=== PATIENT | female | born 1985 ===

== ENCOUNTER → 2021-03-31 14:53 | Outpatient (CLI) | payer OTHER, MEDICAID, SELFPAY ==
[2021-03-31 15:16] LABS: Appearance Urine UA CLEAR; Bilirubin Urine UA NEGATIVE (NEGATIVE); Color Urine UA YELLOW; Glucose Urine UA NEGATIVE (Negative); Ketones Urine UA TRACE (NEGATIVE); Leukocyte Esterase Urine UA TRACE (NEGATIVE); Nitrite Urine UA NEGATIVE (Negative); Occult Blood Urine UA NEGATIVE (Negative); Protein Urine UA NEGATIVE (Negative); Specific Gravity Urine UA <=1.005 (1.000-1.035); Urobilinogen Urine UA 0.2 E.U./dL (0.2)
[2021-03-31 15:25] LABS: pH Urine UA 5.5 (4.5-8.0)
[2021-03-31 15:26] LABS: Bacteria Urine Moderate (10-30); RBC Urine None Seen (0-5/HPF); Squamous Epithelial Cell Urine 5-10 /HPF (0-5/HPF); WBC Urine 0-1/HPF (0-5/HPF)
[2021-03-31 16:37] LABS: Add Manual Diff / Slide Review NO; Basophils Absolute Auto 100 /uL (0-100); Basophils Percent Auto 0.7 % (0-2); Eosinophils Absolute Auto 0 /uL (0-450); Eosinophils Percent Auto 0.4 % (2-4); Hematocrit 38.5 % (36-46); Hemoglobin 12.9 g/dL (12.0-16.0); Lymphocytes Absolute Auto 1500 /uL (1100-4500); Lymphocytes Percent Auto 13.8 % (25-40); Mean Corpuscular HGB Conc 33.4 % (30-36); Mean Corpuscular Hemoglobin 29.1 PG (26-34); Monocytes Absolute Auto 500 /uL (0-900); Monocytes Percent Auto 4.1 % (3-14); Neutrophils Absolute Auto 9000 /uL (1500-7000); Platelet Count 256 X10^3/uL (150-400); Red Blood Cell Count 4.42 X10^6/uL (4.0-5.2); Red Cell Distribution Width 13.2 % (11.6-14.8); White Blood Cell Count 11.1 X10^3/uL (4.5-11.0)
[2021-04-01 03:10] LABS: RPR Screen Non Reactive (Non Reactive)
[2021-04-01 10:25] LABS: Varicella IgG Antibody 1361 index (Immune >165)
[2021-04-03 01:56] LABS: HIV 1 & 2 Ab/Ag 4th Gen Combo NEGATIVE (NEGATIVE); Hep C Virus Ab w/Reflex Quant NEGATIVE s/c (NEGATIVE); Hepatitis B Surface Antigen NEGATIVE s/c (NEGATIVE); Rubella Antibody IgG 60.8 IU/mL (>15)
== END ==
PROVIDERS: Referring Provider Family Medicine; Visit Provider Family Medicine
DX: Z34.81 Encounter for supervision of other normal pregnancy, first trimester (principal)
CPT/HCPCS: 36415; 80055; 81003; 81015; 86787; 86803; 86850; 86900; 86901; 87086; 87389

== ENCOUNTER → 2021-04-28 14:02 | Outpatient (CLI) | payer OTHER, MEDICAID, SELFPAY | PROVIDERS: Family Medicine; Referring Provider Family Medicine; Visit Provider Family Medicine | DX: O09.529 Supervision of elderly multigravida, unspecified trimester (principal); Z34.81 Encounter for supervision of other normal pregnancy, first trimester; Z3A.13 13 weeks gestation of pregnancy; Z34.91 Encounter for supervision of normal pregnancy, unspecified, first trimester | CPT/HCPCS: 36415; 81420 ==

== ENCOUNTER → 2021-10-09 13:45 | Outpatient (CLI) | payer OTHER, MEDICAID, SELFPAY ==
[2021-10-10 10:54] LABS: Strep Grp B PCR NEG for Grp B Strep
== END ==
PROVIDERS: Referring Provider Specialist; Visit Provider Specialist
DX: Z34.83 Encounter for supervision of other normal pregnancy, third trimester (principal); Z3A.37 37 weeks gestation of pregnancy
CPT/HCPCS: 87653

== ENCOUNTER 2021-10-27 06:59 | Inpatient (IN) | payer OTHER, MEDICAID, SELFPAY ==
[2021-10-27 09:25] LABS: Add Manual Diff / Slide Review NO; Basophils Absolute Auto 100 /uL (0-100); Basophils Percent Auto 0.5 % (0-2); Eosinophils Absolute Auto 200 /uL (0-450); Eosinophils Percent Auto 1.6 % (2-4); Hematocrit 32.8 % (36-46); Hemoglobin 10.8 g/dL (12.0-16.0); Lymphocytes Absolute Auto 1600 /uL (1100-4500); Lymphocytes Percent Auto 14.3 % (25-40); Monocytes Absolute Auto 800 /uL (0-900); Monocytes Percent Auto 6.9 % (3-14); Neutrophils Absolute Auto 8500 /uL (1500-7000); Neutrophils Percent Auto 76.7 % (50-75); Platelet Count 219 X10^3/uL (150-400); Red Blood Cell Count 4.15 X10^6/uL (4.0-5.2); Red Cell Distribution Width 16.5 % (11.6-14.8); White Blood Cell Count 11.1 X10^3/uL (4.5-11.0)
[2021-10-27 09:38] LABS: COVID19 -Nasal RAPID Negative (Negative)
--- NOTE | 2021-10-27 10:07 | PM.OBHP.1 ---
OB HPI Date/Time Date of admission: 10/27/21 Date Patient Seen: 10/27/21 Time Patient Seen: 07:30 History of Present Condition Chief complaint: obs of labor : 5 Para: 2 Estimated Date of Delivery: 10/30/21 Estimated Gestational Age (weeks): 39 Narrative: Brandy Rowland is a 36 year old female presented to Labor and delivery with spontaneous rupture membranes. Not in active labor. History of Present care: good care, initiated at week # (9), number of visits (8) and pounds weight gain (41) Dating criteria: LMP confirmed by 1st trimester US Ultrasounds: normal mid trimester US Obstetrical complications: none Medical complications: none Preadmission Labs Blood type: B (-) negative -: Antibody screen: negative, GBS status: negative, HBsAG: negative, HIV: negative and RPR/VDLR: negative -: Chlamydia screen: not detected and Gonorrhea screen: not detected -: Rubella: immune and Varicella: immune HCAB: negative Cell-free DNA: Normal female 1 hr GTT: 118 Prior (ies) History: 11/29/16 6 spontaneous 07/30/18 41.4 12 9 lb 5 oz [facility]vaginal [facility]live [facility] [place] [facility] post-dates inductionOrin 06/04/19 5-6 spontaneous 03/19/20 39.5 1 8 lb 1 oz Femalevaginallive - full termnoneAlR[facility], [place].still BF.noneRomy Evaluation Evaluation Baseline heart rate: 130 Variability: Moderate (11-25) monitor accelerations: Present Monitor Decelerations: Absent Contraction Frequency (minutes): 10 Uterine Contraction Intensity: Mild Category of Tracing: Reactive Status: Category l Dilation (cm): 5 Effacement (%): 90 station: -2 Non-invasive Membranes Rupture Test: positive [facility] Medical History (Updated 03/23/21 @ 12:20 by Jewels Willett RN) Anxiety (~2013) Constipation (~2018) Depression (~2013) Lichen sclerosus of female genitalia (~1993) Surgical History (Updated 03/23/21 @ 12:16 by Jewels Willett RN) History of placement of ear tubes (~1988) History of tonsillectomy and adenoidectomy (~2000) [place] teeth extracted (~2001) Family History (Updated 03/23/21 @ 12:27 by Jewels Willett RN) Mother Depression Arthritis Father Prostate cancer Grandmother Pituitary tumor Grandfather Dementia Grandmother Alzheimer disease Stroke Grandfather Astrocytoma brain tumor Social History marital status: number of children: 2 household members: spouse and children lives independently: Yes caregiver/support person: No housing: house pets and animals: No education level: master's degree (Law degree. ) occupational status: unemployed ([employer] current occupational exposures/hazards: No special carina needs: No seatbelt use: always do you feel safe at home: Yes Smoking Status: Never smoker Tobacco: How many years used: 5 quit status: quit date established (2017.) second hand exposure: No alcohol intake: former (Pre-: occasional wine. ) substance use type: does not use during the past year weight has: increased > 10 lbs well-balanced diet: daily or most days (Ovo-lacto vegetarian: aware of protein needs and sources. Enc'd online nutrition class.) daily servings fruits/ve-4 caffeine: Yes (1 cup/day. ) Type(s) of exercise: walking frequency: daily (has not worked out since she became : used to, wants to get back to that. ) Meds Home Medications and Allergies Home Medications Medication Instructions Recorded Confirmed Type prenat.vits,enedina,oud-[id number]-[id number] 1 tab PO DAILY 03/23/21 10/27/21 History Allergies Allergy/AdvReac Type Severity Reaction Status Date / Time No Known Drug Allergies Allergy Verified 03/23/21 12:09 Review of Systems Review of Systems Narrative: Good movement. Positive rupture membranes. No regular contractions. No headaches, scotomata, epigastric pain. No fevers. OB Exam Narrative Exam Narrative: HEENT exam within normal limits. Lungs are clear to auscultation percussion. Heart is regular rate and rhythm no S3-S4 murmurs. Abdomen is gravid. Fetus is vertex. Extremities without edema and nontender. Objective Labs Result Diagrams: 10/27/21 09:20 Labs: Laboratory Results - last 24 hr 10/27/21 10/27/21 10/27/21 08:00 08:59 09:20 WBC 11.1 H RBC 4.15 Hgb 10.8 L Hct 32.8 L MCV 79.0 L MCH 26.0 MCHC 33.0 RDW 16.5 H Plt Count 219 Neut % (Auto) 76.7 H Lymph % (Auto) 14.3 L [place] % (Auto) 6.9 Eos % (Auto) 1.6 L Baso % (Auto) 0.5 Neut # (Auto) 8500 H Lymph # (Auto) 1600 [place] # (Auto) 800 Eos # (Auto) 200 Baso # (Auto) 100 SARS-CoV-2 (PCR) Negative Blood Type B Negative Antibody Screen Positive Antibody Identification Anti-D Assessment and Plan Assessment and Plan Assessment and Plan narrative: 39 week gestation with spontaneous rupture membranes. History of fast labor. Anticipate vaginal delivery.
[2021-10-27] MEDS: LACTATED RINGERS 1,000 ML 100 ML IV (11:40)
--- NOTE | 2021-10-27 15:52 | PM.OBPRVD ---
Labor & Delivery Delivery date: 10/27/21 Delivery monitor: external FHT and external uterine Route of delivery: L&D Laceration Description: None Estimated blood loss (mL): 100 Anesthesia Type: Other (Nitrous oxide) Narrative: Patient arrived on Labor and delivery with spontaneous rupture membranes. She eventually use nitrous oxide for pain control. heart tones category 1 throughout labor. Patient delivered spontaneously, over an intact perineum. The viable female was placed on the maternal abdomen. There was a nuchal cord. This was released after the baby was born. After the cord stopped pulsating the cord was clamped, cut, and cord bloods obtained. The placenta delivered spontaneously, intact, with three-vessel cord. There were no cervical, vaginal, or perineal tears. Both infant and mother doing well. Baby 1: Infant gender: Female Presentation: vertex Position: Right Occiput Anterior Placenta delivery description: Spontaneous Cord Vessel Description: 3 Vessels and Nuchal Cord score (1 min): 9 score (5 min): 9 weight: 8 lb 8 oz Plan for aftercare: Routine care
[2021-10-27] MEDS: IBUPROFEN 600 MG TABLET PO ×2 (16:41→22:57)
[2021-10-27] MEDS: ACETAMINOPHEN 325 MG TABLET 650 MG PO ×2 (16:41→22:57)
[2021-10-28] MEDS: ACETAMINOPHEN 325 MG TABLET 650 MG PO ×2 (04:46→11:21)
[2021-10-28] MEDS: IBUPROFEN 600 MG TABLET PO ×2 (04:46→11:19)
[2021-10-28 06:08] LABS: Add Manual Diff / Slide Review NO; Basophils Absolute Auto 100 /uL (0-100); Basophils Percent Auto 0.5 % (0-2); Eosinophils Absolute Auto 200 /uL (0-450); Eosinophils Percent Auto 1.5 % (2-4); Hematocrit 31.2 % (36-46); Hemoglobin 10.2 g/dL (12.0-16.0); Lymphocytes Absolute Auto 1800 /uL (1100-4500); Lymphocytes Percent Auto 13.2 % (25-40); Mean Corpuscular HGB Conc 32.5 % (30-36); Mean Corpuscular Hemoglobin 25.8 PG (26-34); Mean Corpuscular Volume 79.4 fL (80-100); Monocytes Absolute Auto 900 /uL (0-900); Monocytes Percent Auto 6.6 % (3-14); Neutrophils Absolute Auto 10900 /uL (1500-7000); Neutrophils Percent Auto 78.2 % (50-75); Platelet Count 192 X10^3/uL (150-400); Red Blood Cell Count 3.93 X10^6/uL (4.0-5.2); Red Cell Distribution Width 16.6 % (11.6-14.8); White Blood Cell Count 13.9 X10^3/uL (4.5-11.0)
[2021-10-28 10:04] VITALS: BP 112/75; PULSE 83; RESP 16; TEMP 36.8
--- NOTE | 2021-10-28 10:22 | P.DS_ITS ---
Discharge Providers Provider Date of admission: 10/27/21 06:59 Discharge Date: 10/28/21 Primary care physician: Doctor Lincoln MD Consults: 10/27/21 08:58 Consult to Anesthesiology Urgent Comment: Consulting Provider: Anesthesiologist Reason for consultation: Epidural Has provider been notified: No 10/28/21 15:51 Consult to Insurance Job Titles Routine Comment: Discharge provider: Carol Mackay DO Summary Hospital Course Date Patient Seen: 10/28/21 Time Patient Seen: 09:15 Diagnoses: Spontaneous vaginal delivery 39 weeks of Hospital Course: Patient is a 36-year-old now 3 after uncomplicated spontaneous vaginal delivery at 39 weeks and 4 days. Patient presented with rupture of membranes and progressed into labor. She utilized nitrous oxide for pain control and went on to deliver a vigorous female infant. There were no lacerations. course has been uncomplicated. Pain well controlled, vaginal bleeding moderate as expected. She is tolerating a diet and passing flatus. Breast-feeding with some pain but overall doing well. Advised patient to call for fevers, severe pain or bleeding through more than a pad an hour. She will follow-up with Dr. Obregon in 1 month. Peripartum Data Delivery Method: Natural Vaginal Laceration Description: None complications: none [place] 1: Gender: Female Disposition of : home Discharge Diagnosis (1) 39 weeks gestation of : Status: Acute (2) Spontaneous vaginal delivery: Status: Acute Status at Discharge Cognitive/behavioral status at discharge: at baseline, oriented Functional status at discharge: independent ambulation Overall status at discharge: patient is progressing back to baseline Time Spent with Patient Time attestation: Total time spent providing and/or coordinating discharge services: Time spent: Less than 30 minutes Objective Labs Result Diagrams: 10/28/21 06:00 Labs: Laboratory Results - last 24 hr 10/28/21 06:00 WBC 13.9 H RBC 3.93 L Hgb 10.2 L Hct 31.2 L MCV 79.4 L MCH 25.8 L MCHC 32.5 RDW 16.6 H Plt Count 192 Neut % (Auto) 78.2 H Lymph % (Auto) 13.2 L [place] % (Auto) 6.6 Eos % (Auto) 1.5 L Baso % (Auto) 0.5 Neut # (Auto) 27564 H Lymph # (Auto) 1800 [place] # (Auto) 900 Eos # (Auto) 200 Baso # (Auto) 100 Exam Vital Signs (past 8 hours): - 10/28/21 10:04 Temperature 98.2 F Pulse Rate 83 Respiratory Rate 16 Blood Pressure 112/75 Narrative Exam Narrative: General: Awake and alert, no acute distress. HEENT: NCAT, EOMI, moist oral mucosa CV: Regular rate and rhythm, no murmurs, rubs or gallops Lungs: CTAB, no wheezes, rales, or rhonchi Abdomen: Soft, nontender; bowel tones active; uterus firm 1 cm below umbilicus Extremities: Warm, no edema Discharge Plan Discharge Plan Patient Disposition: Home Discharge orders & Medications Prescriptions: New docusate sodium 100 mg Capsule 100 mg PO DAILY Qty: 30 0RF ibuprofen 600 mg Tablet 600 mg PO Q6HR PRN (Reason: Pain, Mild (1-3)) Qty: 30 0RF ferrous sulfate 325 mg (65 mg iron) Tablet 325 mg PO DAILY Qty: 30 0RF Continued prenat.vits,enedina,jea-[id number]-[id number] Tablet 1 tab PO DAILY 0RF Follow up/Referrals: Doctor Stark MD [Primary Care Provider] - Oneyda Obregon MD [Physician] - 1 Month (Please call Dr. Obregon's office to schedule a visit) Diet/Activity/Treatments Diet: Diet as Tolerated Skin/Wound/Dressing Care Report to your healthcare provider any signs of infection, such as:: chills, fever, night sweats, increased pain, unusual drainage and unusual redness Visit Report/Discharge Packet Visit Report Forms: Patient Portal/API, Stroke Signs & Symptoms Discharge Data Primary Care Provider: Doctor Lincoln
== END 2021-10-28 14:25 | disposition home or self-care (01) | DRG 560 ==
PROVIDERS: Admitting Provider Specialist; Referring Provider Specialist; Visit Provider Specialist
DX: O42.02 Full-term premature rupture of membranes, onset of labor within 24 hours of rupture (principal); Z3A.39 39 weeks gestation of pregnancy; Z37.0 Single live birth; Z20.822 Contact with and (suspected) exposure to COVID-19; O36.0130 Maternal care for anti-D [Rh] antibodies, third trimester, not applicable or unspecified; Z67.21 Type B blood, Rh negative; O69.81X0 Labor and delivery complicated by cord around neck, without compression, not applicable or unspecified
CPT/HCPCS: 36415; 59050; 59409; 85025; 86850; 86870; 86900; 86901; 87635; C9803; G0379